=== PATIENT | female | born 1960 | race Hispanic/Latino ===

== ENCOUNTER 2021-05-08 19:42 | Emergency (ER) | payer MEDICAID ==
[~2021-05-08] VITALS: Ht 175.3 cm; Wt 106.6 kg
[2021-05-08] MEDS ORDERED: DICYCLOMINE HCL20 MG PO (22:10)
--- NOTE | 2021-05-09 17:16 | EKG ---
[facility] [address] [facility] [place] [address] Signed Normal sinus rhythm Normal ECG No previous ECGs available Confirmed by ALFREDO RAMIREZ MD ([id number] on 05/09/2021 5:16:15 PM Electronically Signed By: ALFREDO RAMIREZ MD 05/09/21 1716 PATIENT NAME: SUSAN UNDERWOOD Electrocardiogram DATE OF : 60 PHYSICIAN: ALFREDO RAMIREZ MD REPORT #: [id number] REPORT IS CONFIDENTIAL AND NOT TO BE RELEASED WITHOUT AUTHORIZATION
== END 2021-05-08 23:00 | disposition home or self-care (01) ==
LOC: ED 19:42
DX: R55 Syncope and collapse (principal); E86.0 Dehydration; E87.6 Hypokalemia; R19.7 Diarrhea, unspecified
CPT/HCPCS: 74174; 80053; 83605; 83690; 83735; 84484; 85025; 87045; 87493; 93005; 93010; 99285-25; J0500; J7121; Q9967